=== PATIENT | female | born 1990 | race Caucasian/White ===

== ENCOUNTER 2018-09-30 06:32 | Emergency (ER) | payer OTHER ==
[2018-09-30 06:40] VITALS: TEMP 98.1; BMI 32.1
--- NOTE | 2018-09-30 08:19 | PDOC ---
History of Present Illness - General Chief Complaint: Injury Stated Complaint: FALL Time Seen by Provider: 09/30/18 07:39 - History of Present Illness Initial Comments: 09/30/18 08:54 25f no pmh presents after everting her left foot/ankle on the ice. Fell on a pile of snow didn't hurt anything else. Left ankle is swollen and she's unable to bear weight on it. Denies pain along the rest of the leg, knee or thigh. Past History - Past Medical History Allergies/Adverse Reactions: Allergies Allergy/AdvReac Type Severity Reaction Status Date / Time No Known Allergies Allergy Verified 09/30/18 06:40 Home Medications: Ambulatory Orders Oxycodone HCl/Acetaminophen [Percocet 5-325 mg Tablet -] 1 combo PO Q6H PRN #14 tablet MDD 4 09/30/18 - Immunization History Immunization Up to Date: No - Suicide/Smoking/Psychosocial Hx Smoking History: Never smoked Have you smoked in the past 12 months: No Information on smoking cessation initiated: No Hx Alcohol Use: No Drug/Substance Use Hx: No Substance Use Type: None Review of Systems - Review of Systems Able to Perform ROS?: Yes Is the patient limited Spanish proficient: No Constitutional: No: Symptoms Reported HEENTM: No: Symptoms Reported Respiratory: No: Symptoms reported Cardiac (ROS): No: Symptoms Reported ABD/GI: No: Symptoms Reported : No: Symptoms Reported Musculoskeletal: Yes: See HPI *Physical Exam - Vital Signs Last Vital Signs Temp Pulse Resp BP Pulse Ox 98.1 F 68 18 106/65 98 09/30/18 06:38 09/30/18 06:38 09/30/18 06:38 09/30/18 06:38 09/30/18 06:38 - Physical Exam General Appearance: Yes: Appropriately Dressed, Obese. No: Apparent Distress HEENT: positive: EOMI, STEPHAN, Normal ENT Inspection Respiratory/Chest: positive: Lungs Clear, Normal Breath Sounds. negative: Chest Tender, Respiratory Distress Cardiovascular: positive: Regular Rhythm, Regular Rate, S1, S2 Gastrointestinal/Abdominal: positive: Normal Bowel Sounds Extremity: positive: Other (Swollen left ankle. No tenderness along the tibia/ calf. Full sensation. full ROM of toes but cannot range ankle/ Good pulses. ) Integumentary: positive: Normal Color, Dry, Warm Neurologic: positive: Fully Oriented, Alert, Normal Mood/Affect, Normal Response Moderate Sedation - Procedure Monitoring Vital Signs: Procedure Monitoring Vital Signs Temperature 98.1 F 09/30/18 06:38 Pulse Rate 68 09/30/18 06:38 Respiratory Rate 18 09/30/18 06:38 Blood Pressure 106/65 09/30/18 06:38 O2 Sat by Pulse Oximetry (%) 98 09/30/18 06:38 ED Treatment Course - RADIOLOGY Radiology Studies Ordered: Category Date Time Status ANKLE & FOOT-LEFT* [RAD] Stat Radiology 09/30/18 07:44 Ordered LEG TIB/FIB-LEFT [RAD] Stat Radiology 09/30/18 07:45 Ordered Medical Decision Making - Medical Decision Making 09/30/18 08:59 28f with left ankle eversion. 09/30/18 09:03 L Ankle and left xray: The ankle imaging reveals a widened mortise with distal fibular shaft fracture and medial malleolar fractures. Ortho consulted. Will come see the patient in the ER. Percocet for pain. 09/30/18 11:01 Fractures reduced, leg splinted by ortho. Ortho communicated that the patient's insurance wouldn't pay for the surgery if performed by their group. Patient was advised to follow up with her own orthopedic contact. Will discharge patient with pain meds, crutches and referral. *DC/Admit/Observation/Transfer Diagnosis at time of Disposition: Tibia/fibula fracture - Discharge Dispostion Disposition: HOME Condition at time of disposition: Fair Decision to Admit order: No - Prescriptions Prescriptions: Oxycodone HCl/Acetaminophen [Percocet 5-325 mg Tablet -] 1 combo PO Q6H PRN #14 tablet MDD 4 PRN Reason: Pain - Referrals Referrals: Betzy Vincent MD [Primary Care Provider] - Donald Loya DO [Staff Physician] - - Patient Instructions Printed Discharge Instructions: Fibula Shaft Fracture, DI for Malleolar Fracture Additional Instructions: Follow up with the orthopedic surgeon of your choice. Drs. Loya/Nury 'marcia contact is provided to you should you need to contact them. Come back to the emergency department for any new, worsening or concerning symptoms. - Post Discharge Activity
--- NOTE | 2018-09-30 08:53 | PDOC ---
Attending Attestation - Resident Resident Name: Davie Briscoe - ED Attending Attestation I have performed the following: I have examined & evaluated the patient, The case was reviewed & discussed with the resident, I agree w/resident's findings & plan, Exceptions are as noted - HPI HPI: 09/30/18 08:51 28y F no pmhx presents s/p slip and fall on ice. She everted her L ankle on snow /ice and fell into a pile of snow. no head injury, loc, back pain, syncope, n/v, numnbess/tingling/weakness. on exam, pt has ttp to medial aspect of L ankle and mild ttp no fx at proximal tib/fib, knee or hip no ttp to cervica/thoracic/lumbar spine xray of ankle noted for distal tibia /distal fiblar fracture [facility] tylenol for pain - Physicial Exam PE: 10/01/18 15:37 see above - Medical Decision Making 09/30/18 11:11 pt evalutaed by ortho, reduced and placed in cast [facility] for outpatient ortho mangaement as pt likely needs operative mangaement will give pt percocet for breathrough pain
[2018-09-30] MEDS ORDERED: LIDOCAINE HCL 1%, 10 MG/ML (50 mL VIAL) INF ONE (09:42)
[2018-09-30] MEDS ORDERED: LIDOCAINE HCL 1%, 10 MG/ML (20ML VIAL) ONE (09:42)
[2018-09-30] MEDS ORDERED: morphine CARPU-JECT 2 MG/1 ML DISP.SYRIN IM ONE (09:51)
[2018-09-30] MEDS ORDERED: morphine SULFATE 4 MG/ML VIAL ONE (09:52)
--- NOTE | 2018-09-30 10:37 | CONSULT ---
Consult - text type - Consultation Consultation Note: ORTHOPEDIC SURGERY CONSULTATION NOTE Department of Orthopedic Surgery HISTORY OF PRESENT ILLNESS Erica Guerra is a 28 year old female who presents to [facility] ED with left ankle pain. The orthopedic service was consulted for a left ankle fracture. The injury occurred today while the patient was walking. The patient slipped and fell on the snow. The patient notes pain to the left ankle. Denies head trauma. Denies any other injuries. Denies numbness, tingling or other constitutional complaints. The patient works as an aide in a school. Denies tobacco use, drug use, alcohol abuse. The patient lives with family at home and uses no assistive devices at baseline. Social History Smoking history Never smoked Hx Alcohol Use No Allergies Allergy/AdvReac Type Severity Reaction Status Date / Time No Known Allergies Allergy Verified 09/30/18 06:40 Vital Signs (last) Temp Pulse Resp BP Pulse Ox 98.1 F 68 18 106/65 98 09/30/18 06:38 09/30/18 06:38 09/30/18 06:38 09/30/18 06:38 09/30/18 06:38 Intake and Output 09/28/18 09/29/18 09/30/18 23:59 23:59 23:59 Other: Weight 205 lb Height 5 ft 7 in Body Mass Index (BMI) 32.1 Weight Measurement Method Est/Stated by Patient FAMILY HISTORY Unknown REVIEW OF SYMPTOMS A twelve-point review of systems was performed and was negative except as noted in HPI. PHYSICAL EXAM Constitutional: Alert and oriented to person, place, and time. Appears well- developed and well-nourished. No acute distress, appropriate mood and affect. HEENT: Normocephalic, atraumatic Cardiovascular: Regular rate and rhythm, extremities warm, no cyanosis. Pulmonary: Breathing comfortably, normal air movement, no audible wheezing. Right Upper Extremity: No tenderness to palpation; nontender throughout rest of extremity. Full passive and active ROM, free from pain. Left Upper Extremity: No tenderness to palpation; nontender throughout rest of extremity. Full passive and active ROM, free from pain. Right Lower Extremity: No tenderness to palpation; nontender throughout rest of extremity. Full passive and active ROM, free from pain. Left Lower Extremity: Skin warm, dry, and intact; ecchymosis and swelling left ankle, No lesions, rashes or ulcers noted. Muscle mass equal and symmetric to contralateral side. No atrophy noted. Tender to palpation at left ankle; nontender throughout rest of extremity. No cords or calf tenderness; No significant calf/ankle edema. Ankle ROM deferred. Able to fire TA/GSC/EHL. SILT distally; 2+ DP pulses; Cap refill brisk. IMAGING I personally reviewed all radiographs. They demonstrate a trimalleolar fracture with subuxation of the talus laterally and posteriorly. ASSESSMENT AND PLAN Mae Guerra is a 28 year old female presenting status post fall with a left sided closed trimalleolar fracture-subluxation. We have reviewed the imaging and clinical findings in detail, as well as their potential implications. After appropriate informed discussion, an intra-articular lidocaine block was performed followed by closed reduction of the ankle and application of a well- padded trilaminar short leg splint. Patient was instructed regarding: non weight bearing on fractured side. signs and symptoms of compartment syndrome and need to seek immediate care should new onset numbness, tingling, or significantly increasing pain occur. maintain strict elevation above the level of the heart for the next 3-4 days. keeping the splint clean and dry. avoiding NSAID medications. Procedure Note for Closed Reduction of Left Ankle with Application of Short Leg Splint After appropriate informed discussion, an intra-articular lidocaine block was performed with 8 mL of 1% lidocaine. The ankle was then manipulated to reduced the ankle mortise. This was followed by application of a well-padded trilaminar short leg splint. She tolerated the procedure well. She was able to move the toes afterwards. SITLT, Capillary refill was under 2 seconds. All questions were answered. Thank you for involving our team in the care of this patient. Patient will need to follow up with an orthopedic surgeon this week for surgery. Osiel Arrington,
[2018-09-30 11:27] VITALS: BP 114/72; PULSE 55
== END 2018-09-30 13:21 | disposition home or self-care (01) ==
LOC: JER 06:32
PROC: 3E023NZ Introduction of Analgesics, Hypnotics, Sedatives into Muscle, Percutaneous Approach (ICD-10-PCS; principal; 2018-09-30)
PROC: 3E013BZ Introduction of Anesthetic Agent into Subcutaneous Tissue, Percutaneous Approach (ICD-10-PCS; 2018-09-30)
PROC: 0QSKXZZ Reposition Left Fibula, External Approach (ICD-10-PCS; 2018-09-30)
PROC: 2W3RX1Z Immobilization of Left Lower Leg using Splint (ICD-10-PCS; 2018-09-30)
DX: S82.852A Displaced trimalleolar fracture of left lower leg, initial encounter for closed fracture (principal); W00.0XXA Fall on same level due to ice and snow, initial encounter; Y93.01 Activity, walking, marching and hiking; Y92.89 Other specified places as the place of occurrence of the external cause; Y99.8 Other external cause status
CPT/HCPCS: 27818; 29515; 73590-TC-LT-FY; 73610-TC-LT-FY; 73630-TC-LT; 96372; 99282-25

== ENCOUNTER → 2018-10-12 | Day surgery (SDC) | payer OTHER ==
[2018-10-09 15:14] VITALS: BMI 31.3
[~2018-10-12] MED LIST: ACETAMINOPHEN 1000 MG/100 ML VIAL (NON FORMULARY) IVPB ONE; ACETAMINOPHEN INJECTION 100 ML IVPB ONE; BUPIVACAINE HCL/PF (5 MG/ML) 30 ML VIAL IJ ONE; DEXAMETHASONE SOD PHOSPHATE/PF 10 MG/ML SDV ONE; GLYCOPYRROLATE 0.2 MG/1 ML VIAL ONE; LACTATED RINGERS SOLUTION 1,000 ML IV SCH; MIDAZOLAM HCL 2 MG/2 ML SINGLE DOSE VIAL ONE; NEOSTIGMINE METHYLSULFATE 0.5 MG/ML - 10 ML MDV ONE; ONDANSETRON 4 MG/2 ML VIAL IVPUSH ONE; ONDANSETRON 4 MG/2 ML VIAL IVPUSH PRN; PROPOFOL 20 ML ONE; ROCURONIUM BROMIDE 50 MG/5 ML VIAL ONE; fentaNYL CITRATE 250 MCG/5 ML VIAL ONE; oxyCODONE HCL 5 MG TABLET ONE; oxyCODONE HCL 5 MG TABLET PO PRN
--- NOTE | 2018-10-12 07:45 | OP ---
Operative Note - Note: Operative Date: 10/12/18 Pre-Operative Diagnosis: Left ankle fracture Operation: Left ankle ORIF Implants: Arthrex one-third tubular 7-hole plate with associated nonlocking 3.5mm cortical screws, tightrope one x 4.0 cannulated screw x 40mm Post-Operative Diagnosis: Same as Pre-op Surgeon: Jaden Gunn [employer] Regional Consultant: Susana Dickens Anesthesia: Spinal Operative Report Dictated: Yes
[2018-10-13 06:27] VITALS: BP 109/66; PULSE 70; TEMP 98.6
--- NOTE | 2018-10-13 09:24 | OP ---
DATE OF OPERATION: 10/12/2018 PREOPERATIVE DIAGNOSIS: Left trimalleolar ankle fracture. POSTOPERATIVE DIAGNOSIS: Left trimalleolar ankle fracture. PROCEDURE: Left ankle open reduction and internal fixation. SURGEON: Jaden Harkins MD WHEAT SHIPPER: REGAN Martinez, whose skillful assistance was necessary for the safe and timely performance of this procedure. Ms. Dickens was able to provide limb positioning, retraction, assist with fracture reduction, as well as the insertion of orthopedic fixation hardware. ANESTHESIA: Regional/general. POSTOPERATIVE CONDITION: Stable. COMPLICATIONS: None. IMPLANTS: Arthrex one-third tubular 7-hole plate with associated nonlocking 3.5-mm cortical screws, TightRope one x 4.0 cannulated screw x 40 mm. INDICATIONS: This is a pleasant young lady who suffered an ankle fracture after a slip and fall. She was found to have a displaced and unstable ankle fracture. Treatment options including nonoperative versus operative care were reviewed. Operative care was highly recommended given displacement and instability present. Operative risks were reviewed detail including bleeding, infection, neurovascular injury, need for further surgery, postoperative pain and stiffness, nonunion, malunion, hardware failure or cutout. We discussed medical risks such as heart attack, stroke, DVT, PE, and . I addressed the use of perioperative antibiotic and DVT prophylaxis. I addressed all the patient's questions and concerns. She voiced understanding and elected to proceed. DESCRIPTION OF PROCEDURE: The patient was brought to the operating room where general anesthesia was administered. She had previously been given a block in the preoperative holding area. The left lower extremity was then prepped and draped in the usual sterile fashion. A preoperative dose of antibiotics was given, and the usual timeout procedure was performed. An incision was now planned out over the fibula where the fracture was present. This was carried down through the skin and subcutaneous tissue. Blunt spreading was used to expose the superficial peroneal nerve. The nerve was now protected. Posteriorly, a window was opened in the fascia to expose the fibula and the fracture. Care was taken to protect the nerve throughout the case. The periosteum was now elevated both anteriorly and posteriorly to expose the fracture site. Fracture site was debrided of any loose debris. The fracture was not able to be held stable with the K-wire or reduction forceps, and therefore decision was made to reduce it to the plate. A 7-hole plate was chosen. The plate was affixed distally with a single 3.5-mm screw. Fracture reduction forcep was now used to reduce the fracture and hold it to the plate. Anatomic reduction was achieved. Proximally a 3.5-mm screw was inserted. At this point, both fluoroscopy and visual inspection were used to verify both hardware placement and fracture reduction. Both were satisfactory. The remainder of the screws in the plate were now used to secure the construct. After placing all of the cortical screws, the fracture reduction and hardware placement were again assessed both visually and fluoroscopically and both were satisfactory. Attention was now turned medially. Here, incision was planned in a curvilinear incision was planned out medially over the medial malleolus. This was carried down through the skin and subcutaneous tissue. Blunt spreading was used to expose the periosteum over the medial malleolus. This was then split in line with the medial malleolus exposing the fracture site. Again, the fracture site was debrided of any loose debris. A dental tool was now used to hold the piece in place while K-wires were used to secure it in position. K-wire fixation was verified fluoroscopically in 2 planes and was satisfactory. The K-wires were then individually overdrilled with a 4.0 drill bit, and two 40-mm cancellous screws were inserted. During the insertion process, an A to P split developed in the medial malleolar fragment causing the fragment to lose reduction and the screws to lose purchase. Both screws were then removed. The fragment was re-reduced utilizing the dental tool. Another K-wire was placed in the middle of the fragment which was still intact. Satisfactory reduction was achieved. This single wire was now drilled, and a single screw was placed to avoid any further comminution. Attention was now turned to fluoroscopy of the construct. Both fracture reduction of the medial malleolar and lateral malleolar fragments were satisfactory at this point. There was, however, persistent widening of the borders. Given this finding, some syndesmotic fixation was chosen to be applied. A drill bit from the TightRope set was passed across the tibia and out the medial cortex just posterior to where the medial malleolar screw was. TightRope was now passed across both bones and then secured into place, reducing the syndesmosis. At this point, the entire construct was then reexamined fluoroscopically and AP, Mortise, and lateral views. Both fracture reduction, mortise reduction, and hardware placement were satisfactory. The wounds were now copiously irrigated. Deep tissue was approximated using 0 Vicryl. The subcutaneous tissue was approximated with 2-0 Vicryl. The skin was closed using 3-0 nylon horizontal mattress sutures. Sterile dressings were placed. The patient was placed into a well-padded, short-leg cast. She was extubated and transferred to recovery room in stable condition. JADEN HARKINS M.D. [id number]
== END | disposition home or self-care (01) ==
LOC: FASU 12:47
PROVIDERS: ATTEND Orthopaedic Surgery Sports Medicine
PROC: 0QSH04Z Reposition Left Tibia with Internal Fixation Device, Open Approach (ICD-10-PCS; 2018-10-12)
PROC: 0SSG0ZZ Reposition Left Ankle Joint, Open Approach (ICD-10-PCS; 2018-10-12)
PROC: 0QSK04Z Reposition Left Fibula with Internal Fixation Device, Open Approach (ICD-10-PCS; principal; 2018-10-12 16:57)
DX: S82.852A Displaced trimalleolar fracture of left lower leg, initial encounter for closed fracture (principal); S93.432A Sprain of tibiofibular ligament of left ankle, initial encounter; X58.XXXA Exposure to other specified factors, initial encounter; Y93.9 Activity, unspecified; Y92.9 Unspecified place or not applicable
CPT/HCPCS: 27822; 27829; C1713; 73610-TC-LT-FY; 84703; 94760; J0131